=== PATIENT | male | born 1985 | race American Indian/Alaskan Native ===

== ENCOUNTER 2018-12-12 17:38 | Emergency (ER) | payer OTHER ==
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
[2018-12-12] MEDS ORDERED: PERCOCET 5/325 PO ONE (18:25)
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
[2018-12-12 21:32] VITALS: BP 144/94
--- NOTE | 2018-12-12 21:50 | XRay Report ---
PROCEDURE: XR CHEST ROUTINE 2V TECHNIQUE: 2 views of the chest were obtained HISTORY: wheeze COMPARISONS: FINDINGS: Cardiac and mediastinal contours are unremarkable. No focal pulmonary infiltrate identified. No pleur al fluid collection seen. Pulmonary vasculature is unremarkable. IMPRESSION: Negative two-view chest. This document is electronically signed by Alex Villafana MD., December 12 2018 09:48:02 PM ET
== END 2018-12-12 22:26 | disposition home or self-care (01) ==
LOC: ED 17:38
DX: S39.012A Strain of muscle, fascia and tendon of lower back, initial encounter (principal); F17.200 Nicotine dependence, unspecified, uncomplicated; V47.5XXA Car driver injured in collision with fixed or stationary object in traffic accident, initial encounter; Y93.89 Activity, other specified; Y92.488 Other paved roadways as the place of occurrence of the external cause; Y99.8 Other external cause status
CPT/HCPCS: 71046; 72100; 99283

== ENCOUNTER 2021-05-11 12:24 | Emergency (ER) | payer SELFPAY ==
[2021-05-11 12:29] VITALS: BP 152/109
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
[2021-05-11] MEDS ORDERED: methylPREDNISolone Sod Succinate 125 MG/2 ML INJ IM ONE (13:00)
[2021-05-11] MEDS ORDERED: ALBUTEROL 2.5 MG/3 ML NEBU IH ONE (13:00)
[2021-05-11] MEDS ORDERED: IPRATROPIUM 0.02% NEBU 2.5 ML IH ONE (13:00)
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
== END 2021-05-11 14:22 | disposition home or self-care (01) ==
LOC: ED 12:24
DX: U07.1 COVID-19 (principal); R09.89 Other specified symptoms and signs involving the circulatory and respiratory systems; E11.9 Type 2 diabetes mellitus without complications; Z79.899 Other long term (current) drug therapy
CPT/HCPCS: 71045; 74018; 94640; 96372; 99283; J2930